=== PATIENT | female | born 1990 | race African-American/Black ===

== ENCOUNTER 2022-08-08 12:59 | Emergency (ER) | payer MEDICAID, OTHER ==
[~2022-08-08] VITALS: Ht 160 cm; Wt 77.0 kg
[2022-08-08 13:07] VITALS: TEMP 97.9; O2SAT 97
[2022-08-08 13:45] VITALS: BP 122/80; PULSE 98; RESP 20
[2022-08-08] MEDS ORDERED: IBUPROFEN 600MG TABLET PO ONE (13:45)
[2022-08-08] MEDS ORDERED: IBUP-2029 MT (14:50)
== END 2022-08-08 15:49 | disposition home or self-care (01) ==
LOC: ER 12:59
DX: S83.91XA Sprain of unspecified site of right knee, initial encounter (principal); Z98.890 Other specified postprocedural states; W01.0XXA Fall on same level from slipping, tripping and stumbling without subsequent striking against object, initial encounter; Y93.89 Activity, other specified; Y92.89 Other specified places as the place of occurrence of the external cause; Y99.8 Other external cause status
CPT/HCPCS: 73560; 99283; Z7610; L1830

== ENCOUNTER 2023-02-06 16:08 | Emergency (ER) | payer OTHER ==
[~2023-02-06] VITALS: Ht 165.1 cm; Wt 75.0 kg
[~2023-02-06 16:08] MED LIST: IBUP-2029 MT
[2023-02-06 16:22] VITALS: O2SAT 82
[2023-02-06] MEDS ORDERED: GUAI-450 MT (17:45)
[2023-02-06] MEDS ORDERED: IBUP-2029 MT (17:45)
[2023-02-06 18:26] VITALS: BP 120/78; PULSE 78; RESP 18; TEMP 98.7
== END 2023-02-06 18:27 | disposition home or self-care (01) ==
LOC: ER 16:08
DX: U07.1 COVID-19 (principal)
CPT/HCPCS: 99282